=== PATIENT | female | born 1990 | race Caucasian/White ===

== ENCOUNTER 2018-04-05 16:17 | Emergency (ER) | payer BC ==
[~2018-04-05] VITALS: Ht 165.1 cm; Wt 72.1 kg
[2018-04-05] MEDS ORDERED: RITALIN (16:29)
[2018-04-05] MEDS ORDERED: SERTRALINE (16:30)
[2018-04-05] MEDS ORDERED: METH20TA PO (16:41)
[2018-04-05] MEDS ORDERED: SERT25TA3 PO (16:41)
[2018-04-05 17:07] LABS: HCG UR SG 1.026 (1.003-1.030)
[2018-04-05 17:33] LABS: BASOPHILS # (AUTO) 0.04 x10^3/uL (0-0.1); BASOPHILS % (AUTO) 1 % (0-1); EOSINOPHILS # (AUTO) 0.12 x10^3/uL (0-0.4); EOSINOPHILS % (AUTO) 2 % (1-7); LYMPHOCYTES # (AUTO) 2.05 x10^3/uL (1-3.4); LYMPHOCYTES % (AUTO) 36 % (22-44); MD NO; MEAN CORPUSCULAR HEMOGLOBIN 31.1 pg (27.0-34.8); MEAN CORPUSCULAR VOLUME 91.3 fL (80-100); MONOCYTES # (AUTO) 0.65 x10^3/uL (0.2-0.8); MONOCYTES % (AUTO) 11 % (2-9); NEUTROPHILS # (AUTO) 2.88 x10^3/uL (1.8-6.8); NEUTROPHILS % (AUTO) 50 % (42-75); PLATELET COUNT 293 x10^3/uL (130-400); RED BLOOD COUNT 4.52 x10^6/uL (3.82-5.3)
[2018-04-05 17:38] LABS: ALANINE AMINOTRANSFERASE 23 U/L (12-78); ALBUMIN 3.6 g/dL (3.4-5.0); ANION GAP 7 mmol/L (5-15); CALCIUM 8.7 mg/dL (8.5-10.1); CHLORIDE 107 mmol/L (98-107); CREATININE 0.83 mg/dL (0.55-1.02)
[2018-04-05 17:47] LABS: ALKALINE PHOSPHATASE 55 U/L (45-117); BILIRUBIN,TOTAL 0.3 mg/dL (0.2-1.0); T4 (THYROXINE) 14.1 mcg/dL (4.8-13.9); THYROID STIMULATING HORMONE 0.915 mIU/L (0.358-3.740); TOTAL PROTEIN 7.1 g/dL (6.4-8.2)
[2018-04-05 17:56] VITALS: BP 105/66
== END 2018-04-05 18:30 | disposition home or self-care (01) ==
LOC: ED 18:02
DX: J06.9 Acute upper respiratory infection, unspecified (principal)
CPT/HCPCS: 36415; 71046; 80053; 81025; 84436; 84443; 85025; 85379; 86308; 93005; 99285